=== PATIENT | male | born 1985 | race Caucasian/White ===

== ENCOUNTER 2022-04-11 22:10 | Inpatient (IN) | payer BC ==
[~2022-04-11] VITALS: Ht 182.9 cm; Wt 151.7 kg
[~2022-04-11 22:10] MED LIST: MOTRIN800 MG PO; NKHM; VICODIN 5/500 505 MG PO
[2022-04-11 22:19] VITALS: BP 198/96; BP 199/100
[2022-04-11 23:17] LABS: BASO # 0.1 10*3/uL (0.0-0.1); BASO % 0.4 % (0.0-1.0); EOS # 0.1 10*3/uL (0.0-0.4); EOS % 0.9 % (1.0-4.0); HEMATOCRIT 44.8 % (42.0-52.0); LYMPH # 2.1 10*3/uL (1.3-4.4); LYMPH % 15.8 % (27.0-41.0); MEAN CELL VOLUME 78.5 fl (80.0-94.0); MEAN CORPUSCULAR HGB 26.3 pg (27.0-31.0); MEAN CORPUSCULAR HGB CONC 33.5 g/dl (33.0-37.0); MONO % 7.7 % (3.0-9.0); NEUT % 74.9 % (47.0-73.0); PLATELET COUNT AUTOMATED 364 10*3/uL (130-400); RED BLOOD COUNT 5.71 10*6/uL (4.50-5.90); RED CELL DISTRI WIDTH 14.2 % (0-14.5); WHITE BLOOD COUNT 13.3 10*3/uL (4.8-10.8)
[2022-04-11 23:18] VITALS: BP 158/64
[2022-04-11 23:31] LABS: ALKALINE PHOSPHATASE 86 U/L (45-117); BUN 18 mg/dl (7-24); CHLORIDE 110 mmol/L (98-107); CREATININE 0.86 mg/dL (0.70-1.30); LIPASE 86 U/L (73-393); POTASSIUM 4.1 mmol/L (3.5-5.1); SGOT/AST 27 IU/L (3-35); SGPT/ALT 35 U/L (12-78); SODIUM 139 mmol/L (136-145); TOTAL PROTEIN 7.3 gm/dL (6.4-8.2)
[2022-04-12 05:50] VITALS: BP 162/98
[2022-04-12 05:51] VITALS: BP 160/64
[2022-04-12 08:15] VITALS: BP 162/64
[2022-04-12 16:00] VITALS: BP 107/44
[2022-04-12 20:00] VITALS: BP 196/81
[2022-04-13] VITALS: BP 182/76
[2022-04-13 03:45] VITALS: BP 190/103
[2022-04-13 05:30] VITALS: BP 158/102
[2022-04-13 06:10] LABS: BASO % 0.2 % (0.0-1.0); EOS # 0.2 10*3/uL (0.0-0.4); HEMATOCRIT 46.6 % (42.0-52.0); LYMPH # 1.3 10*3/uL (1.3-4.4); LYMPH % 9.3 % (27.0-41.0); MEAN CORPUSCULAR HGB 26.4 pg (27.0-31.0); MEAN CORPUSCULAR HGB CONC 32.6 g/dl (33.0-37.0); MEAN PLATELET VOLUME 9.4 fl (9.6-12.3); MONO # 1.4 10*3/uL (0.1-1.0); MONO % 9.6 % (3.0-9.0); NEUT # 11.4 10*3/uL (2.3-7.9); NEUT % 79.4 % (47.0-73.0); PLATELET COUNT AUTOMATED 338 10*3/uL (130-400); RED BLOOD COUNT 5.75 10*6/uL (4.50-5.90); RED CELL DISTRI WIDTH 14.2 % (0-14.5); WHITE BLOOD COUNT 14.4 10*3/uL (4.8-10.8)
[2022-04-13 06:27] LABS: ALKALINE PHOSPHATASE 85 U/L (45-117); BUN 9 mg/dl (7-24); CHLORIDE 106 mmol/L (98-107); CREATININE 0.79 mg/dL (0.70-1.30); POTASSIUM 4.2 mmol/L (3.5-5.1); SGOT/AST 18 IU/L (3-35); SGPT/ALT 35 U/L (12-78); SODIUM 135 mmol/L (136-145)
[2022-04-13 08:00] VITALS: BP 162/84
[2022-04-13 16:00] VITALS: BP 145/75
[2022-04-13 20:00] VITALS: BP 122/50
[2022-04-14] VITALS (11 sets, daily range): BP systolic 114–154; BP diastolic 54–85
[2022-04-15] VITALS: BP 102/58
[2022-04-15] MEDS ORDERED: VITAMIN E180 M1 PO (07:18)
[2022-04-15] MEDS ORDERED: AMLODIPINE BESY10 MG PO (07:18)
[2022-04-15] MEDS ORDERED: METOPROLOL SUCC50 M1 PO (07:18)
[2022-04-15] MEDS ORDERED: DOCUSATE SOD100 MG PO (07:18)
[2022-04-15 08:00] VITALS: BP 132/73
== END 2022-04-15 09:46 | disposition home or self-care (01) | DRG 418 ==
LOC: ED 22:10 → EDHOLD 04-12 04:45 → 4E 04-12 04:45
PROVIDERS: Internal Medicine; ADMIT Internal Medicine; ATTEND Internal Medicine
PROC: 0FT44ZZ Resection of Gallbladder, Percutaneous Endoscopic Approach (ICD-10-PCS; principal; 2022-04-14)
PROC: 3E0T3BZ Introduction of Anesthetic Agent into Peripheral Nerves and Plexi, Percutaneous Approach (ICD-10-PCS; 2022-04-14)
PROC: 3E0T33Z Introduction of Anti-inflammatory into Peripheral Nerves and Plexi, Percutaneous Approach (ICD-10-PCS; 2022-04-14)
DX: K80.01 Calculus of gallbladder with acute cholecystitis with obstruction (principal); Z68.42 Body mass index [BMI] 45.0-49.9, adult; K76.0 Fatty (change of) liver, not elsewhere classified; I10 Essential (primary) hypertension; D72.829 Elevated white blood cell count, unspecified; E66.01 Morbid (severe) obesity due to excess calories; G47.33 Obstructive sleep apnea (adult) (pediatric); Z88.0 Allergy status to penicillin; Z59.00 Homelessness unspecified